=== PATIENT | female | born 1975 | race American Indian/Alaskan Native ===

== ENCOUNTER 2018-07-22 05:38 | Emergency (ER) | payer BC ==
[2018-07-22 05:54] VITALS: BP 159/93
[2018-07-22] MEDS ORDERED: DELTASONE PO ONE (07:32)
[2018-07-22] MEDS ORDERED: ROBITUSSIN PO ONE (07:32)
--- NOTE | 2018-07-22 08:40 | Emergency Department Report ---
HPI - General Chief Complaint: Upper Respiratory Infection Time Seen by Provider: 07/22/18 07:18 - HPI HPI: This is a 43-year-old female who presents to ED complaining of sore throat and coughing that began Friday is progress without getting better. Patient describes cough is nonproductive, intermittent. Patient also complains of nasal congestion. She denies fevers/nausea vomiting/abdominal pains as chest pain or shortness of breath. ED Past Medical Hx - Past Medical History Previous Medical History?: Yes Hx Hypertension: Yes Hx Diabetes: Yes Hx Psychiatric Treatment: Yes (depression anxiety) - Surgical History Past Surgical History?: Yes Hx Breast Surgery: Yes (reduction) Additional Surgical History: hyster - Social History Smoking Status: Never Smoker - Medications Home Medications: Home Medications Medication Instructions Recorded Confirmed Last Taken Type Azithromycin [Zithromax] 250 mg PO DAILY #6 tablet 07/22/18 Unknown Rx Benzonatate [Tessalon Perles] 100 mg PO Q8HR #20 capsule 07/22/18 Unknown Rx Nystas/Diphen/Xyl Visc/Mylanta 15 ml MM Q4H #120 ml 07/22/18 Unknown Rx [Magic Mouthwash] guaiFENesin [Robitussin] 200 mg PO TID #100 ml 07/22/18 Unknown Rx ED Review of Systems ROS: Stated complaint: COLD SX/SOB/SORE THROAT Other details as noted in HPI Comment: All other systems reviewed and negative ENT: throat pain, congestion (nasal). denies: ear pain, dental pain Respiratory: cough Cardiovascular: denies: chest pain Physical Exam - Physical Exam Vital Signs: Vital Signs 07/22/18 05:49 Temperature 98.7 F Pulse Rate 80 Blood Pressure 159/93 O2 Sat by Pulse 98 Oximetry Physical Exam: GENERAL: Alert and oriented x3, no apparent distress, Normal Gait, atraumatic. HEAD: Head is normocephalic and a-traumatic. EARS: symetrical, atraumatic, non tender, ear canal clear and moderate cerumen, tympanic membrance non inflamed. gross auditory nml bilaterally. NOSE: Nose symetrical, Nontender,Nares appeared normal. MOUTH:Mouth is well hydrated and without lesions. Tonsils nonerythematous but mildly swollen, Uvula midline, Tongue not elevated. Mucous membranes are moist. Posterior pharynx clear, no exudate or lesions. Patent airways. NECK: Supple. Non edematous, No carotid bruits. No lymphadenopathy or thyromegaly. No C-spine tenderness LUNGS: Symetrical with respiration, No wheezing, no rales or crackles, CTAB. HEART: S1, S2 present, regular rate and rhythm without murmur, no rubs, no gallops. Non tender to palpation SKIN: Warm and dry, No lesions, No ulceration or induration present. ED Course Vital Signs 07/22/18 05:49 Temperature 98.7 F Pulse Rate 80 Blood Pressure 159/93 O2 Sat by Pulse 98 Oximetry ED Medical Decision Making - Medical Decision Making 43-year-old female presents with upper respiratory infection. no fever during the ED stay. Rapid strep test negative Discussed continue Tylenol and Motrin as needed for fever and pain. Discussed increase fluids and diet intake. Discussed rest much needed. Discussed daily vitamin C for immune booster. Discussed follow-up with primary care physician in 3-5 days. Patient verbally states she understands and will comply the following instructions and follow-up Vital signs stable. Patient is in no acute or respiratory distress Critical care attestation.: If time is entered above; I have spent that time in minutes in the direct care of this critically ill patient, excluding procedure time. ED Disposition Clinical Impression: Upper respiratory infection Disposition: - TO HOME OR SELFCARE Is pt being admited?: No Does the pt Need Aspirin: No Condition: Stable Instructions: Upper Respiratory Infection (ED), Cold Symptoms (ED) Additional Instructions: Make sure to follow up with the primary care physician as discussed. Take all your medications as you've been prescribed. If you have any worsening symptoms or develop new symptoms please return to ED immediately. Prescriptions: Azithromycin [Zithromax] 250 mg PO DAILY #6 tablet Benzonatate [Tessalon Perles] 100 mg PO Q8HR #20 capsule guaiFENesin [Robitussin] 200 mg PO TID #100 ml Nystas/Diphen/Xyl Visc/Mylanta [Magic Mouthwash] 15 ml MM Q4H #120 ml Referrals: M[facility] GANNON [Other] - 3-5 Days Forms: Work/School Release Form(ED) Time of Disposition: 08:42
== END 2018-07-22 08:59 | disposition home or self-care (01) ==
LOC: ED 05:38
DX: J06.9 Acute upper respiratory infection, unspecified (principal); I10 Essential (primary) hypertension; E11.9 Type 2 diabetes mellitus without complications; F32.9 Major depressive disorder, single episode, unspecified; F41.9 Anxiety disorder, unspecified; Z88.2 Allergy status to sulfonamides
CPT/HCPCS: 87116; 87430; 99283; J7512